=== PATIENT | male | born 1980 | race Caucasian/White ===

== ENCOUNTER 2020-08-10 10:40 | Emergency (ER) | payer OTHER ==
[2020-08-10] MEDS ORDERED: SODIUM CHLORIDE 0.9% 1,000 ML IV STA (11:18)
[2020-08-10] MEDS ORDERED: LORazepam 2 MG/ML INJ IV STA ×2 (11:18→17:07)
--- NOTE | 2020-08-10 11:28 | ED ---
Alcohol HPI - General Chief Complaint: Alcohol Stated Complaint: alcohol Time Seen by Provider: 08/10/20 11:01 Source: patient, RN notes reviewed Mode of arrival: ambulatory Limitations: no limitations - History of Present Illness Initial Comments: This a 39-year-old male presents emergency Department sent in by [facility] for alcohol intoxication. Patient attempted go to rehab today and they felt that he was too intoxicated. Patient states he drinks approximately 1 L of liquor daily. Patient states that he started have some withdrawal symptoms. Patient has had severe withdrawal symptoms when he tried to detox by himself. Patient denies any physical complaints on history of pancreatitis no drug use. He does take Suboxone daily. - Related Data Home Medications Medication Instructions Recorded Confirmed Buprenorphine HCl/Naloxone HCl 1 film SL BID 08/10/20 08/10/20 [Suboxone 8 mg-2 mg Sl Film] Allergies Allergy/AdvReac Type Severity Reaction Status Date / Time bee venom protein (honey bee) Allergy Anaphylaxis Verified 08/10/20 11:46 Review of Systems ROS Statement: Those systems with pertinent positive or pertinent negative responses have been documented in the HPI. ROS Other: All systems not noted in ROS Statement are negative. Past Medical History Past Medical History: Atrial Fibrillation History of Any Multi-Drug Resistant Organisms: None Reported Past Surgical History: No Surgical Hx Reported, Ablation, Hernia Repair Past Psychological History: No Psychological Hx Reported Smoking Status: Current every day smoker Past Alcohol Use History: Abuse, Daily, Heavy Past Drug Use History: None Reported General Exam Limitations: no limitations General appearance: alert, in no apparent distress Head exam: Present: atraumatic, normocephalic, normal inspection Eye exam: Present: normal appearance, PERRL, EOMI. Absent: scleral icterus, conjunctival injection, periorbital swelling ENT exam: Present: normal exam, normal oropharynx, mucous membranes moist Neck exam: Present: normal inspection. Absent: tenderness, meningismus, lymphadenopathy Respiratory exam: Present: normal lung sounds bilaterally. Absent: respiratory distress, wheezes, rales, rhonchi, stridor Cardiovascular Exam: Present: normal rhythm, tachycardia, normal heart sounds. Absent: systolic murmur, diastolic murmur, rubs, gallop, clicks GI/Abdominal exam: Present: soft, normal bowel sounds. Absent: distended, tenderness, guarding, rebound, rigid Neurological exam: Present: alert, oriented X3 Skin exam: Present: warm, dry, intact, normal color. Absent: rash Course Vital Signs 08/10/20 10:54 Temperature 98 F Pulse Rate 106 H Respiratory 18 Rate Blood Pressure 119/72 O2 Sat by Pulse 93 L Oximetry Medical Decision Making - Medical Decision Making 39-year-old presented for alcohol intoxication. Patient's alcohol level [id number]. Patient is awake alert and oriented he is able to ambulate no difficul ty. Labs show mild alcoholic hepatitis. Patient's will be discharged back to [facility] for rehab and alcohol treatment - Lab Data Result diagrams: 08/10/20 11:39 08/10/20 11:39 Lab Results 08/10/20 08/10/20 Range/Units 11:39 11:39 WBC 2.7 L (3.8-10.6) k/uL RBC 4.13 L (4.30-5.90) m/uL Hgb 14.6 (13.0-17.5) gm/dL Hct 42.5 (39.0-53.0) % MCV 102.9 H (80.0-100.0) fL MCH 35.3 H (25.0-35.0) pg MCHC 34.3 (31.0-37.0) g/dL RDW 12.6 (11.5-15.5) % Plt Count 104 L (150-450) k/uL MPV 7.5 Neutrophils % 70 % Lymphocytes % 25 % Monocytes % 3 % Eosinophils % 1 % Basophils % 0 % Neutrophils # 1.9 (1.3-7.7) k/uL Lymphocytes # 0.7 L (1.0-4.8) k/uL Monocytes # 0.1 (0-1.0) k/uL Eosinophils # 0.0 (0-0.7) k/uL Basophils # 0.0 (0-0.2) k/uL Macrocytosis Slight Sodium 148 H (137-145) mmol/L Potassium 4.0 (3.5-5.1) mmol/L Chloride 108 H (98-107) mmol/L Carbon Dioxide 32 H (22-30) mmol/L Anion Gap 8 mmol/L BUN 9 (9-20) mg/dL Creatinine 0.66 (0.66-1.25) mg/dL Est GFR (CKD-EPI)AfAm >90 (>60 ml/min/1.73 sqM) Est GFR (CKD-EPI)NonAf >90 (>60 ml/min/1.73 sqM) Glucose 128 H (74-99) mg/dL Calcium 8.6 (8.4-10.2) mg/dL Magnesium 1.7 (1.6-2.3) mg/dL Total Bilirubin 0.4 (0.2-1.3) mg/dL AST 222 H (17-59) U/L ALT 175 H (4-49) U/L Alkaline Phosphatase 57 (38-126) U/L Total Protein 7.4 (6.3-8.2) g/dL Albumin 4.2 (3.5-5.0) g/dL Lipase 235 (23-300) U/L Disposition Clinical Impression: Alcoholic hepatitis, Alcoholic intoxication Disposition: HOME SELF-CARE Condition: Stable Instructions (If sedation given, give patient instructions): Alcohol Intoxication (ED) Additional Instructions: Please return to the Emergency Department if symptoms worsen or any other concerns. Is patient prescribed a controlled substance at d/c from ED?: No Referrals: None,Stated [REFERRING] - 1-2 days Time of Disposition: 13:03
[2020-08-10 12:05] LABS: Basophils % (A) 0 %; Eosinophils % (A) 1 %; HCT 42.5 % (39.0-53.0); HGB 14.6 gm/dL (13.0-17.5); Lymphocytes # (A) 0.7 k/uL (1.0-4.8); Lymphocytes % (A) 25 %; MCH 35.3 pg (25.0-35.0); MCHC 34.3 g/dL (31.0-37.0); MCV 102.9 fL (80.0-100.0); Macrocytosis Slight; Mean Platelet Volume 7.5; Monocytes # (A) 0.1 k/uL (0-1.0); Monocytes % (A) 3 %; Neutrophils # (A) 1.9 k/uL (1.3-7.7); Neutrophils % (A) 70 %; RBC 4.13 m/uL (4.30-5.90); RDW 12.6 % (11.5-15.5); WBC 2.7 k/uL (3.8-10.6)
[2020-08-10 12:07] LABS: ALT 175 U/L (4-49); AST 222 U/L (17-59); African American GFR (CKD) >90 (>60 ml/min/1.73 sqM); Albumin 4.2 g/dL (3.5-5.0); Alkaline Phosphatase 57 U/L (38-126); Anion Gap 8 mmol/L; Blood Urea Nitrogen 9 mg/dL (9-20); Calcium 8.6 mg/dL (8.4-10.2); Carbon Dioxide 32 mmol/L (22-30); Chloride 108 mmol/L (98-107); Glucose 128 mg/dL (74-99); Lipase 235 U/L (23-300); Magnesium 1.7 mg/dL (1.6-2.3); Non-African American GFR(CKD) >90 (>60 ml/min/1.73 sqM); Platelet Count 104 k/uL (150-450); Sodium 148 mmol/L (137-145); Total Bilirubin 0.4 mg/dL (0.2-1.3); Total Protein 7.4 g/dL (6.3-8.2)
[2020-08-10] MEDS ORDERED: IBUPROFEN 800 MG TAB PO STA (13:03)
[2020-08-10] MEDS ORDERED: LORazepam 2 MG/ML INJ IM STA (13:42)
[2020-08-10 16:19] VITALS: RESP 18
[2020-08-10 17:25] VITALS: BP 126/76; PULSE 66; TEMP 98.2
== END 2020-08-10 17:42 | disposition home or self-care (01) ==
LOC: EC 10:40
DX: F10.129 Alcohol abuse with intoxication, unspecified (principal); K70.10 Alcoholic hepatitis without ascites; F17.200 Nicotine dependence, unspecified, uncomplicated; I48.91 Unspecified atrial fibrillation
CPT/HCPCS: 36415; 80053; 83690; 83735; 85025; 99284; 96374; 96376; 96361; J2060